=== PATIENT | female | born 1985 | race Caucasian/White ===

== ENCOUNTER 2017-12-12 03:46 | Inpatient (IN) | payer OTHER ==
[~2017-12-12] VITALS: Ht 162.6 cm; Wt 72.6 kg
[~2017-12-12 03:46] MED LIST: FERRALET 901 TAB PO; IBUPROFEN800 MG PO; MOTRIN 600 MG600 MG PO; PERCOCET 325 MG1 TA2 PO
[2017-12-12 05:17] LABS: ABSOLUTE BASOPHIL COUNT 0 /CUMM (0.0-0.2); ABSOLUTE EOSINOPHIL COUNT 0.1 /CUMM (0.0-0.7); ABSOLUTE GRANULOCYTE CT 12.7 /CUMM (1.4-6.5); ABSOLUTE LYMPH COUNT 1.6 /CUMM (1.2-3.4); ABSOLUTE MONOCYTE COUNT 0.9 /CUMM (0.10-0.60); BASOPHIL % 0.2 % (0.0-2.0); EOSINOPHIL % 0.8 % (0-5); GRANULOCYTE % 82.6 % (42.2-75.2); HEMATOCRIT 32.4 % (37-47); MEAN CORPUSCULAR HGB CONC 32.4 G/DL (33.0-37.0); MEAN CORPUSCULAR VOLUME 74.3 FL (81.0-99.0); MEAN PLATELET VOLUME 8.4 FL (7.4-10.4); PLATELET COUNT 302 /CUMM (130-400); RBC DISTRIBUTION WIDTH 16.6 % (11.5-14.5); RED BLOOD CELL CT 4.36 /CUMM (4.20-5.40); WHITE BLOOD CELL COUNT 15.4 /CUMM (4.8-10.8)
--- NOTE | 2017-12-12 05:55 | History & Physical ---
General Information and HPI MD Statement: I have seen and personally examined SAVANNAH PERKINS and documented this H&P. Source of Information: patient, old records Exam Limitations: no limitations History of Present Illness: The patient is a 32 year old at 39 weeks and 6 days gestation who presented with a chief complaint of painful ctx. H/o C/S x 1, desires AARON. GBS pos. No LOF / vb. +FM. 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 Para: 2 Last Menstrual Period: 03/14/17 Estimated Delivery Date: 12/13/17 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 History: h/o C/S Past Pregnancies Past Pregnancies: 1 Date of Delivery: 08/28/12 Gestational Age: 39 Length of Labor: 12 Weight: 7#11 Type of Delivery: vaginal Anesthesia: epid Place of Delivery: [facility] Complications: none Past Pregnancies: 2 Date of Delivery: 09/25/14 Gestational Age: 34 Weight: 4#13 Type of Delivery: Anesthesia: epid Place of Delivery: [facility] Complications: PPROM, NRFHT Medical History Respiratory: TB 2004, tx x 9mos Endocrine: hyperthyroidism (no meds, dx 2005) [employer]/Reproductive: HPV Surgical History Pertinent Surgical History: appendectomy, Past Family/Social History Psychosocial History Smoking Status: Never Smoked Exam & Diagnostic Data Last 24 Hrs of Vital Signs/I&O Intake & Output 12/12 0800 12/12 0000 12/11 1600 Intake Total Output Total Balance Patient 160 lb Weight Obstetric Exam Wgt Gained During : 30lb Pelvimetry: adequate Dilation (cm): 8 Effacement (%): 100 Station: 0 Membranes: intact Fluid: unknown Fundal Height (cm): 39 Multiple Gestation? No Contractions: q 3-4 Infant #1 - FHR Baseline: 140 Category: 2 Estimated Weight: 3600 Presentation: vtx Patient for Induction? No Physical Exam: nad cta rrr abd soft nt gravid ext nt no ed Labs Blood Type & Rh: O pos Antibody Screen: neg Hct/Hgb & Platelets #1: 11.6/38.3, 329 Hct/Hgb & Platelets #2: 9.8/ 34.3, 317 Rubella: non immune VDRL #1: neg VDRL #2: neg HbsAg: neg HIV #1: neg HIV #2 neg 1 Hr P Group B Strep: pos Initial Ultrasound: 05/14 siup 9+4 cwd Anatomy Ultrasound: 07/28 sb wnl, plac ant,above scar Ultrasound for EFW: 11/12 68% Genetic Testing: cffdna wnl XY nl NT hgb AA CF neg Last 24 Hrs of Labs/Yrn: Laboratory Tests 12/12/17 0425: CBC w Diff NO MAN DIFF REQ, RBC 4.36, MCV 74.3 L, MCH 24.0 L, MCHC 32.4 L, RDW 16.6 H, MPV 8.4, Gran % 82.6 H, Lymphocytes % 10.7 L, Monocytes % 5.7, Eosinophils % 0.8, Basophils % 0.2, Absolute Granulocytes 12.7 H, Absolute Lymphocytes 1.6, Absolute Monocytes 0.9 H, Absolute Eosinophils 0.1, Absolute Basophils 0, Urinalysis MOD H, Urine Color YEL, Urine Clarity CLDY H, Urine pH 6.0, Ur Specific [place] >= 1.030, Urine Protein 30 H, Urine Ketones TRACE H, Urine Nitrite NEG, Urine Bilirubin NEG, Urine Urobilinogen 0.2, Ur Leukocyte Esterase SMALL H, Ur Microscopic SEDIMENT EXAMINED, Urine RBC 3-5, Urine WBC 10 -15 H, Ur Epithelial Cells MANY H, Urine Bacteria MANY H, Urine Hemoglobin SMALL H, Urine Glucose NEG Assessment/Plan Assessment/Plan: 32yo @ 39+6 in active labor, GBS pos, intact, h/o LFTCS, desires AARON, RNI and maternal status reassuring -admit -vanco gbs proph -cont monitoring -MMR -ant As Ranked By This Provider Problem List: 1. Core Measures Venous Thromboembolism VTE Risk Factors / No Mechanical VTE Prophylaxis d/t Early Ambulation No VTE Pharm Prophylaxis d/t LowRisk-No Interven Req'd
--- NOTE | 2017-12-12 07:46 | Labor & Delivery Summary ---
Delivery Summary Vaginal Delivery: Vaginal: spontaneous : : YES Episiotomy/Lacerations: Type: SECOND DEG PERINEAL Repair: 2-0 LORENZO Anesthesia: LOCAL Placenta: Placenta: spontanteous, normal, 3 vessel, nuchal cord (x_) (1) Anesthesia: none Apgars - 1 Min: 8 Apgars - 5 Min: 9 Additional Comments: Pt FD / +2 and pushing w/o epidural. Controlled of live male, apg 8/9. Head del from IGOR. Nuchal x 1 reduced. Body delivered w/o difficulty. Baby to mom's chest. Bulb suctioned. Cord clamped and cut. 3vc plac del spont intact. 2nd deg lac repaired w/ 10cc nesicaine local and 2-0 lorenzo usual fashion. Good hemostasis. Pt jordan well. Fundus contracted. EBL 300cc.
[2017-12-12 09:36] VITALS: BP 124/63
[2017-12-13 07:35] LABS: ABSOLUTE BASOPHIL COUNT 0.1 /CUMM (0.0-0.2); ABSOLUTE EOSINOPHIL COUNT 0.2 /CUMM (0.0-0.7); ABSOLUTE LYMPH COUNT 2.1 /CUMM (1.2-3.4); ABSOLUTE MONOCYTE COUNT 1.2 /CUMM (0.10-0.60); BASOPHIL % 0.8 % (0.0-2.0); EOSINOPHIL % 1.6 % (0-5); GRANULOCYTE % 75.1 % (42.2-75.2); HEMATOCRIT 29.5 % (37-47); MEAN CORPUSCULAR HGB 24.1 PG (27.0-31.0); MEAN CORPUSCULAR HGB CONC 32.3 G/DL (33.0-37.0); MEAN CORPUSCULAR VOLUME 74.5 FL (81.0-99.0); MEAN PLATELET VOLUME 9.2 FL (7.4-10.4); PLATELET COUNT 266 /CUMM (130-400); RBC DISTRIBUTION WIDTH 16.6 % (11.5-14.5); RED BLOOD CELL CT 3.96 /CUMM (4.20-5.40); WHITE BLOOD CELL COUNT 14.7 /CUMM (4.8-10.8)
--- NOTE | 2017-12-13 12:31 | PN- OBGYN ---
Surgical Brief Attending Note Brief Attending Note: pt feels well. amb / void / jordan po. pain well controlled. desires d/c home today. afeb, v/ss nad abd soft nt ff patrice min lochia ext nt no ed hct 32-->29 a/p ppd 1 s/p , doing well -d/c home w/ motrin -d/c instructions reviewed -f/u next wk cbc, in office in 6 wks
[2017-12-13] MEDS ORDERED: IBUPROFEN800 M1 PO (12:35)
== END 2017-12-13 16:15 | DRG 775 ==
LOC: CBCO 03:46 → GNO 04:26
PROVIDERS: Obstetrics & Gynecology
PROC: 10E0XZZ Delivery of Products of Conception, External Approach (ICD-10-PCS; principal; 2017-12-12)
PROC: 0KQM0ZZ Repair Perineum Muscle, Open Approach (ICD-10-PCS; principal; 2017-12-12)
DX: O70.1 Second degree perineal laceration during delivery (principal); Z37.0 Single live birth; O34.211 Maternal care for low transverse scar from previous cesarean delivery; O69.81X0 Labor and delivery complicated by cord around neck, without compression, not applicable or unspecified; N85.8 Other specified noninflammatory disorders of uterus; O99.824 Streptococcus B carrier state complicating childbirth; Z3A.39 39 weeks gestation of pregnancy
CPT/HCPCS: GNOS; 81001; J1885; J3370; J7040; J7120